=== PATIENT | male | born 1960 | race Caucasian/White ===

== ENCOUNTER 2018-09-27 20:55 | Emergency (ER) | payer OTHER ==
[~2018-09-27 20:55] MED LIST: ISOVUE-370 76%-LOCM 1 ML ONE
[2018-09-27 21:33] LABS: #Basophils 0.1 thou/uL (0.0-0.2); #Lymphocytes 1.4 thou/uL (1.20-3.40); #Monocytes 0.4 thou/uL (0.11-0.59); #Neutrophils 8.1 thou/uL (1.40-6.50); %Basophils 0.7 % (0.0-1.0); %Eosinophils 0.4 % (0.0-10.0); %Lymphocytes 14.4 % (21.0-51.0); %Monocytes 3.9 % (0.0-10.0); %Neutrophils 80.6 % (42.0-75.0); Hemoglobin 16.8 g/dL (14.0-18.0); Mean Corpuscular HGB CONC 33.3 g/dL (32.0-36.0); Mean Corpuscular Hemoglobin 28.7 pg (27.0-31.0); Mean Corpuscular Volume 86.1 fL (78.0-98.0); Mean Platelet Volume 7.8 fL (7.4-10.4); Platelet Count 202 thou/uL (130-400); RBC Distribution Width 12.2 % (11.5-14.5); Red Blood Cell (RBC) Count 5.87 mill/uL (4.70-6.10)
[2018-09-27 21:39] LABS: Prothrombin Time 13.3 SEC (12.0-14.7)
[2018-09-27 21:40] LABS: PTT 31.3 SEC (22.9-36.1)
[2018-09-27 21:58] LABS: ALT (SGPT) 52 U/L (8-55); AST (SGOT) 26 U/L (5-34); Albumin 4.7 g/dL (3.5-5.0); Alkaline Phosphatase 89 U/L (40-150); Anion Gap 12 mmol/L (10-20); BUN (Urea Nitrogen) 11 mg/dL (8.4-25.7); Bilirubin, Total 0.9 mg/dL (0.2-1.2); CK (CPK) 61 U/L (30-200); Calc. Creatinine Clearance 0 mL/min (70-130); Calcium 10.5 mg/dL (7.8-10.44); Carbon Dioxide 28 mmol/L (22-29); Chloride 101 mmol/L (98-107); Estimated GFR-MDRD 70; Globulin 3.5 g/dL (2.4-3.5); Glucose 125 mg/dL (70-105); Potassium 4.3 mmol/L (3.5-5.1); Protein, Total 8.2 g/dL (6.0-8.3); Sodium 137 mmol/L (136-145)
--- NOTE | 2018-09-27 22:03 | CT ---
CT HEAD NONCONTRAST: History: Dizziness. Comparison: 05-08-11 FINDINGS: There is no evidence of acute intracranial hemorrhage or infarct. Mild chronic ischemic small vessel disease is stable. There is no mass effect or shift of midline structures. Visualized paranasal sinus es remain well aerated. IMPRESSION: No acute intracranial abnormalities are demonstrated. Findings were called to Dr. Jack in the Emergency Department at 2140 hours. Code CR POS: [facility]
--- NOTE | 2018-09-27 22:14 | CT ---
CT ARTERIOGRAM NECK WITH IV CONTRAST AND 3D MIP IMAGING CT ARTERIOGRAM HEAD WITH IV CONTRAST AND 3D MIP IMAGING CT BRAIN WITH IV CONTRAST: History: Dizziness. Altered mental status. FINDINGS: There is normal branching of the great vessels at the aortic arch. Good flow into each internal carot id and vertebral system. Minimal calcification at each carotid bifurcation. No significant stenosis. [place] of [place] is intact. Good flow into each cerebral and cerebellar system. No filling defects ar e apparent. No abnormal areas of intracranial contrast enhancement visible. IMPRESSION: No acute vascular abnormalities are demonstrated. Minimal atherosclerosis. Findings were called to Dr. Jack in the Emergency Department at 2156 hours. Code CR POS: [facility]
[2018-09-27] MEDS ORDERED: Meclizine HCl 25 MG TAB ONE (22:18)
[2018-09-27] MEDS ORDERED: Ondansetron PF 4 MG/2 ML Vial ONE (22:25)
--- NOTE | 2018-09-29 10:39 | CT ---
CT ARTERIOGRAM NECK WITH IV CONTRAST AND 3D MIP IMAGING CT ARTERIOGRAM HEAD WITH IV CONTRAST AND 3D MIP IMAGING CT BRAIN WITH IV CONTRAST: History: Dizziness. Altered mental status. FINDINGS: There is normal branching of the great vessels at the aortic arch. Good flow into each internal carot id and vertebral system. Minimal calcification at each carotid bifurcation. No significant stenosis. [place] of [place] is intact. Good flow into each cerebral and cerebellar system. No filling defects ar e apparent. No abnormal areas of intracranial contrast enhancement visible. IMPRESSION: No acute vascular abnormalities are demonstrated. Minimal atherosclerosis. Findings were called to Dr. Jack in the Emergency Department at 2156 hours. Code CR
== END 2018-09-28 00:16 | disposition home or self-care (01) ==
LOC: ERS 20:55
DX: R42 Dizziness and giddiness (principal); M10.9 Gout, unspecified; I10 Essential (primary) hypertension; Z79.899 Other long term (current) drug therapy
CPT/HCPCS: 36416; 70450; 70496; 70498; 80053; 82550; 84484; 85025; 85610; 85730; 93005; 96374; J2405; Q9966